=== PATIENT | female | born 1985 | race Caucasian/White ===

== ENCOUNTER 2020-12-20 16:33 | Emergency (ER) | payer BC, MEDICAID ==
[~2020-12-20] VITALS: Ht 162.6 cm; Wt 72.6 kg
[2020-12-20 16:43] VITALS: BP 119/70
--- NOTE | 2020-12-20 16:50 | NUR ---
Pt a/ox4, able to verbalize needs. Pt ambulated w/steady gait to restroom, urine collected. Pt c/o abdominal pain radiating to the ruth ann back describes as 6-7/10.
[2020-12-20] MEDS ORDERED: DICYCLOMINE HCL LIQUID 20 MG, ALUMINUM HYD/MAG/SIMETHICONE 30 ML, LIDOCAINE VISCOUS 2% ... PO ONE ×3 (17:00)
[2020-12-20] MEDS ORDERED: ALUMINUM HYD/MAG/SIMETHICONE 30 ML UDC ONE (17:06)
[2020-12-20] MEDS ORDERED: LIDOCAINE VISCOUS 2% 20 ML UDC ONE (17:06)
[2020-12-20] MEDS ORDERED: DICYCLOMINE HCL LIQUID 10 MG/5 ML UDC ONE (17:07)
[2020-12-20 17:30] LABS: BASOPHILS % (AUTO) 0.7 % (0.0-2.0); EOSINOPHILS % (AUTO) 0.7 % (0.0-4.0); HEMATOCRIT 30.1 % (36-48); HEMOGLOBIN 9.9 g/dL (12.0-16.0); LYMPHOCYTES # (AUTO) 2.1 K/uL (2.5-16.5); MEAN CORPUSCULAR HEMOGLOBIN 27 pg (27-31); MEAN CORPUSCULAR HGB CONC 33 g/dL (33-37); MEAN CORPUSCULAR VOLUME 81.9 fL (80-94); MONOCYTES # (AUTO) 0.3 K/uL (0.8-1.0); MONOCYTES % (AUTO) 5.3 % (1.7-9.3); NEUTROPHILS # (AUTO) 3.1 K/uL (1.8-7.7); NEUTROPHILS % (AUTO) 56.3 % (42.2-75.2); PLATELET COUNT (AUTO) 374 K/uL (140-450); RED BLOOD CELL COUNT(AUTO) 3.67 MIL/uL (4.20-5.40); RED CELL DISTRIBUTION WIDTH 13.6 % (11.6-13.7); WHITE BLOOD COUNT (AUTO) 5.6 K/uL (4.8-10.8)
[2020-12-20 17:45] LABS: ALBUMIN 3.6 g/dL (3.4-5.0); ANION GAP 14.5 (8-16); CARBON DIOXIDE 25.3 mmol/L (21-32); CREATININE 0.6 mg/dL (0.6-1.3); POTASSIUM 3.8 mmol/L (3.5-5.1); TOTAL BILIRUBIN 0.3 mg/dL (0.0-1.0)
[2020-12-20] MEDS ORDERED: FAMO40TA12 PO (17:55)
[2020-12-20] MEDS ORDERED: FAMOTIDINE 20 MG TAB PO ONE (18:00)
[2020-12-20 18:05] VITALS: BP 119/70
--- NOTE | 2020-12-20 18:06 | NUR ---
Patient discharged with v/s stable. Written and verbal after care instructions given and explained. Patient alert, oriented and verbalized understanding of instructions. Ambulatory with steady gait. All questions addressed prior to discharge. ID band removed. Patient advised to follow up with PMD. Rx of FAMOTADINE 40MG given. Patient educated on indication of medication including possible reaction and side effects. Opportunity to ask questions provided and answered.
== END 2020-12-20 18:06 | disposition home or self-care (01) ==
LOC: MED 16:33
DX: K29.70 Gastritis, unspecified, without bleeding (principal); D64.9 Anemia, unspecified; Z98.84 Bariatric surgery status
CPT/HCPCS: 36415; 80053; 81002; 81025; 83690; 85025; 99283

== ENCOUNTER 2022-05-04 02:10 | Emergency (ER) | payer BC ==
[~2022-05-04] VITALS: Ht 160 cm; Wt 75.3 kg
[~2022-05-04 02:10] MED LIST: FAMO40TA12 PO
[2022-05-04 02:14] VITALS: BP 108/61
--- NOTE | 2022-05-04 02:16 | NUR ---
Patient waited in Lobby.
--- NOTE | 2022-05-04 03:12 | NUR ---
Patient ambulated to bed 4.
--- NOTE | 2022-05-04 03:13 | NUR ---
Dr. Rodriguez examining patient.
--- NOTE | 2022-05-04 03:13 | NUR ---
PT TAKEN TO BED 4
--- NOTE | 2022-05-04 03:13 | NUR ---
LAB AT BEDSIDE
[2022-05-04] MEDS ORDERED: MORPHINE SULFATE 4 MG/ML SYR IVP ONE (03:20)
[2022-05-04] MEDS ORDERED: ONDANSETRON 4 MG/2 ML VIAL IVP ONE (03:20)
[2022-05-04] MEDS ORDERED: NACL 0.9% 1,000 ML IV ONE (03:20)
--- NOTE | 2022-05-04 03:20 | NUR ---
Lida cline in [facility] - 05/04/22 at 0333 by JERRY AMBULATED TO BR. GARCIA OBTAINED AND SENT TO LAB
[2022-05-04 03:21] LABS: BASOPHILS % (AUTO) 0.3 % (0.0-2.0); EOSINOPHILS % (AUTO) 0.1 % (0.0-4.0); HEMOGLOBIN 8.7 g/dL (12.0-16.0); LYMPHOCYTES # (AUTO) 1.3 K/uL (2.5-16.5); MEAN CORPUSCULAR HEMOGLOBIN 20 pg (27-31); MEAN CORPUSCULAR HGB CONC 31 g/dL (33-37); MEAN CORPUSCULAR VOLUME 65.1 fL (80-94); MONOCYTES # (AUTO) 0.4 K/uL (0.8-1.0); MONOCYTES % (AUTO) 3.9 % (1.7-9.3); NEUTROPHILS % (AUTO) 82.7 % (42.2-75.2); PLATELET COUNT (AUTO) 442 K/uL (140-450); RED BLOOD CELL COUNT(AUTO) 4.31 MIL/uL (4.20-5.40); RED CELL DISTRIBUTION WIDTH 18.3 % (11.6-13.7); WHITE BLOOD COUNT (AUTO) 9.7 K/uL (4.8-10.8)
[2022-05-04 03:45] LABS: ALBUMIN 3.9 g/dL (3.4-5.0); ANION GAP 12.1 (8-16); CARBON DIOXIDE 23.3 mmol/L (21-32); CREATININE 0.6 mg/dL (0.6-1.3); POTASSIUM 3.4 mmol/L (3.5-5.1); TOTAL BILIRUBIN 0.5 mg/dL (0.0-1.0)
--- NOTE | 2022-05-04 04:36 | NUR ---
PT ENCOURAGED TO PROVIDE URINE, ST STATES SHE IS UNABLE TO AT THIS TIME.
--- NOTE | 2022-05-04 05:20 | NUR ---
Patient 's family at bedside.
[2022-05-04] MEDS ORDERED: ONDA-188 SL (05:28)
[2022-05-04 05:35] VITALS: BP 110/70
== END 2022-05-04 05:35 | disposition home or self-care (01) ==
LOC: MED 02:10
DX: R10.12 Left upper quadrant pain (principal); R11.2 Nausea with vomiting, unspecified; D64.9 Anemia, unspecified; Z98.890 Other specified postprocedural states
CPT/HCPCS: 36415; 80053; 83690; 85025; 96361; 96374; 96375; 99284; J2270; J2405; J7030